=== PATIENT | female | born 1975 | race Caucasian/White ===

== ENCOUNTER → 2018-02-11 | Outpatient (CLI) | payer OTHER ==
--- NOTE | 2018-02-12 15:42 | MAMMOGRAPHY REPORT ---
BILATERAL DIGITAL SCREENING MAMMOGRAM TOMOSYNTHESIS WITH CAD: 02/11/2018 CLINICAL HISTORY: Routine screening. TECHNIQUE: The study was acquired using full field digital technology and interpreted from soft copy. Breast tomosynthesis in addition to standard 2D mammography was performed. Current study was also ev aluated with a Computer Aided Detection (CAD) system. COMPARISON: Comparison is made to exams dated: 03/17/2015 mammogram, 08/25/2012 mammogram, 08/25/2012 u ltrasound, and 09/25/2010 mammogram - [facility]. BREAST COMPOSITION: The tissue of both breasts is heterogeneously dense, which may obscure small mass es. FINDINGS: There is a small cluster of calcifications in the left upper outer quadrant, for which spot magnifica tion views are recommended for further evaluation. The remainder of both breasts are stable compared to prior exams, without suspicious masses, calcific ations, or areas of architectural distortion noted. IMPRESSION: ACR BI-RADS CATEGORY 0: INCOMPLETE EVALUATION: NEED ADDITIONAL IMAGING EVALUATION Left upper outer quadrant calcifications, for which additional imaging evaluation is recommended. Th e patient will be called to schedule an appointment. Some breast cancers are not detected with mammography. A negative mammographic report should not david y biopsy if a clinically suggestive mass is present. Gerda Baird M.D. ah/:02/11/2018 16:22:14 Rn Acute Care: RT Joshua(R)(M), [facility] letter sent: Addl Imaging 0 BI-RADS Code: ACR BI-RADS Category 0: Incomplete Evaluation: Need Additional Imaging Evaluation
== END | disposition home or self-care (01) ==
LOC: C.MAMM 13:03
PROVIDERS: ATTEND Family Medicine
DX: Z12.31 Encounter for screening mammogram for malignant neoplasm of breast (principal); R92.1 Mammographic calcification found on diagnostic imaging of breast

== ENCOUNTER → 2018-02-19 | Outpatient (CLI) | payer OTHER ==
--- NOTE | 2018-02-19 15:09 | MAMMOGRAPHY REPORT ---
UNILATERAL LEFT DIGITAL DIAGNOSTIC MAMMOGRAM: 02/19/2018 CLINICAL HISTORY: Callback from screening mammogram for left breast calcifications. TECHNIQUE: Spot magnification left cc and ML views were obtained. COMPARISON: Comparison is made to exams dated: 03/17/2015 mammogram, 08/25/2012 mammogram, 08/25/2012 u ltrasound, and 09/25/2010 mammogram - [facility]. BREAST COMPOSITION: The tissue of left breast is heterogeneously dense, which may obscure small vicki s. FINDINGS: Spot magnification views of the left breast demonstrate a small 7 mm group of calcifications in the l eft upper outer quadrant. The calcifications are smudgy and amorphous on the cc view, and all of the calcifications demonstrate layering on the lateral view and are therefore consistent with benign mil k of calcium. No suspicious calcifications are noted on the additional views. IMPRESSION: ACR BI-RADS CATEGORY 2: BENIGN Grouped calcifications in the left upper outer quadrant are benign and compatible with milk of calciu m. There is no mammographic evidence of malignancy. A 1 year screening mammogram is recommended.() The patient has been verbally notified of the results. Some breast cancers are not detected with mammography. A negative mammographic report should not david y biopsy if a clinically suggestive mass is present. Gerda Baird M.D. /:02/19/2018 11:07:58 Mailing Section Clerk: RT Rehan(R)(M), [facility] letter sent: Normal 1/2 BI-RADS Code: ACR BI-RADS Category 2: Benign
== END | disposition home or self-care (01) ==
LOC: C.MAMM 10:38
PROVIDERS: ATTEND Family Medicine
DX: R92.1 Mammographic calcification found on diagnostic imaging of breast (principal)